=== PATIENT | female | born 1985 | race Caucasian/White ===

== ENCOUNTER 2017-09-12 10:37 | Outpatient (CLI) | payer OTHER ==
[2016-05-29 13:08] VITALS: BP 157/98
[2017-09-12 11:35] LABS: eGFR (African) > 60; eGFR (Non-African) > 60
== END 2017-09-12 10:40 ==
LOC: LAB 10:37
PROVIDERS: ATTEND Physician Assistant
DX: Z00.00 Encounter for general adult medical examination without abnormal findings (principal); R73.9 Hyperglycemia, unspecified; Z13.6 Encounter for screening for cardiovascular disorders; Z12.4 Encounter for screening for malignant neoplasm of cervix
CPT/HCPCS: 36415; 80053; 80061; 83036; 88148; G0143

== ENCOUNTER 2019-01-09 08:26 | Outpatient (CLI) | payer OTHER ==
[2016-05-29 13:08] VITALS: BP 157/98
--- NOTE | 2019-01-09 13:40 | Diagnostic Imaging Report ---
<p>Your browser does not support iframes.</p> MONA TALBOT [facility] [address] [facility].[address] [address] Report Submission Date: Jan 09, 2019 9:03:49 AM CDT Patient Study Name: HOLLAND TOMLIN Date: Jan 09, 2019 8:28:22 AM CDT Modality Type: DX Gender: F Description: BILAT WRISTS 3 VIEW : 85 Institution: [facility] Physician: MONA TALBOT Examination: Plain film wrists History: MEDIAL WRIST PAIN X1 YEAR Comparison exams: None available Findings: 3 views of the right and left wrists demonstrate normal cortical margins. No fracture. No dislocation. No soft tissue abnormality. Impression: No acute-appearing osseous abnormality Electronically signed on Jan 09, 2019 9:03:49 AM CDT by: Shiva PUCKETT
== END 2019-01-09 08:28 ==
LOC: RAD 08:26
PROVIDERS: ATTEND Nurse Practitioner Family
DX: M25.531 Pain in right wrist (principal); M25.532 Pain in left wrist

== ENCOUNTER 2019-04-08 13:54 | Outpatient (CLI) | payer OTHER ==
[2016-05-29 13:08] VITALS: BP 157/98
--- NOTE | 2019-04-30 11:01 | CONSULTATION REPORT ---
DATE OF CONSULTATION: 04/08/2019 CHIEF COMPLAINT: Bilateral carpal tunnel syndrome with pain and dysesthesias in hands and forearms. HISTORY OF PRESENT ILLNESS: This 34-year-old white female is seen for recommendations regarding treatment of bilateral carpal tunnel syndrome per request of Sandhya Mc NP, at the [facility] in [place]. The patient indicates that she has had troubles with pain in both hands and wrists for over a year. 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 She does report that she has tried using wrist splints, and that helped just a little bit such that she can do the job, but she still hurts. She says that the symptoms just keep getting worse. She does indicate that she has difficulty holding objects, feels like she is having to hold something that is 50 pounds in each hand "all the time." She says she drops objects. She does indicate that the pain awakens her at night. The patient does report that she is currently taking tramadol for it, 50 mg one to two tabs p.o. at a time. She used to take hydrocodone. She has taken non-steroidal medication in the past, but it has not helped. The patient does indicate no history of previous carpal tunnel disease or neuro problems peripherally. She does present having undergone EMG performed by Dr. Esparza at the [facility] in [place], [place] on 03/04/2019. That study reveals bilateral mild median entrapment neuropathy at the wrist consistent with carpal tunnel syndrome. There is no evidence of large fiber polyneuropathy in the upper limbs. MEDICATIONS: The patient does have additional medications listed to include gabapentin 100 mg one to two p.o. on regular basis, says that she takes these at least once a day, sometimes several times per day. REVIEW OF SYSTEMS: The patient's review of systems is positive for corrective lenses. PAST MEDICAL HISTORY: She reports history of kidney stones. PAST SURGICAL HISTORY: She reports surgical history of cholecystectomy 2001 and kidney stone removal 2016. SOCIAL HISTORY: The patient is a current 2-pack per day smoker, has smoked for about 20 years. She is single. She indicates she does not use alcohol and never has. FAMILY HISTORY: The patient's family history is positive for cancer in mother, asthma in father, paternal grandfather and one sibling. Diabetes in father and paternal grandfather. Hypertension in mother, father and paternal grandfather. Heart attack in father. Hypercholesterolemia in mother and father. Stroke in father. PHYSICAL EXAMINATION: On physical exam, vital signs are recorded revealing temperature 98.6, respirations 20, pulse 77, blood pressure 133/90. Height is 5 feet 1 inch with a weight of 183 pounds with a calculated BMI of 34.57. HEENT: Normocephalic. Neck: Supple. Lungs: Clear to percussion bilaterally. Cardiovascular: Regular, rate and rhythm. Abdomen: Soft, nontender, obese. Extremities: There is decreased sensation in the hands bilaterally. The patient has positive Tinel's, positive Phalen's, positive median nerve compression tests bilaterally as well. She does have reduced toll mechanic strength bilaterally, has to be coaxed to fully extend the fingers bilaterally after removing her wrist splints. She is able to move the thumb, but does not readily use the thumb to make a fist, but can do so upon request verbally. She has prominent toll mechanic strength weakness. There is good capillary refill distally. I did note the patient can pronate and supinate well, although slowly. She can dorsiflex and palmar flex the wrist slowly. I note she does report she feels better with the wrist splints in place. Findings are bilateral, left side somewhat more symptomatic, i.e., more pain and dysesthesias, weaker toll mechanic strength. She reports pain up to the elbows bilaterally, again worse on the left. She is able to abduct and forward flex both shoulders. Pulses are present and symmetric at the radial aspect of wrists bilaterally. IMPRESSION: 1. Bilateral carpal tunnel syndrome, symptomatically somewhat worse on dominant left upper extremity. 2. Mild obesity. 3. Cigarette smoker. RECOMMENDATIONS: Options are discussed with the patient. She voices desire to proceed with a left carpal tunnel release surgery. I discussed what that entails, anticipating a mini open procedure under monitored anesthesia control (MAC) with supplemental local anesthesia. I did advise the patient that decreased toll mechanic strength versus premorbid status is expected following carpal tunnel release, long-term. I also advised her that no guarantee as to results can be, is or will be provided. She is advised that expectation is for some reduction in the level of discomfort, but that no guarantee in that regard is provided. I did advise her that recurrence occurs in some individuals, and that the goal of the surgery is to stop the progression of carpal tunnel disease. I advised that some individuals improve, but again that the goal is to keep the carpal tunnel disease from getting worse. I advised her that it usually takes a minimum of two to four weeks to start feeling better after carpal tunnel release, although some individuals note improvement quicker. Other individuals sometimes require several months to notice improvement, assuming that they are part of the 90% of individuals who do note some improvement after the surgery. I did advise her that occupational or physical therapy is generally beneficial in helping individuals with rehabilitation following carpal tunnel release and that her active participation in that process is requisite. I also advised her that I would not anticipate providing her with narcotic medication postoperatively beyond for a few days, and she acknowledges and accepts this. I did recommend that she get the left side done initially and then the right later on, assuming she has gotten a satisfactory result in her opinion from the left carpal tunnel release. All of her questions are answered to her voiced satisfaction. We did discuss alternatives of treatment available, both surgical and non-surgical. She voices desire to proceed with the left carpal tunnel release, acknowledging that complications can and do arise in some individuals including, but not limited to, recurrence, infection, need for additional surgical intervention or interventions, failure to improve, worse symptoms, recurrence of symptoms, worse stiffness than she currently experiences, worse weakness than she currently experiences. I did advise her that her symptoms appear to be quite severe on her initial presentation, especially given what appears to be rather mild findings on the electrodiagnostic study. I did advise that smoking cessation/cessation of nicotine in all forms is likely to help her obtain improvement as well. We discussed the rationale behind that, especially in regards to healing concerns and oxygen availability for the tissues postoperatively. Scheduling is arranged for left carpal tunnel release under monitored anesthesia control using local supplementation. Ash Quinteros MD /Joe [id number] Job #[id number] cjd ITALO
== END 2019-04-08 15:20 ==
LOC: ORHTO 13:54
PROVIDERS: ATTEND Orthopaedic Surgery
DX: G56.03 Carpal tunnel syndrome, bilateral upper limbs (principal); F17.210 Nicotine dependence, cigarettes, uncomplicated; E66.9 Obesity, unspecified; Z68.34 Body mass index [BMI] 34.0-34.9, adult
CPT/HCPCS: 99203

== ENCOUNTER 2019-04-30 12:44 | Outpatient (CLI) | payer OTHER ==
[2016-05-29 13:08] VITALS: BP 157/98
[2019-04-30 13:29] LABS: eGFR (Non-African) > 60
[2019-04-30 14:32] LABS: SEGMENTED NEUTROPHILS % 52 % (39-79)
== END 2019-04-30 12:49 ==
LOC: LAB 12:44
PROVIDERS: ATTEND Nurse Practitioner Family
DX: Z01.818 Encounter for other preprocedural examination (principal)
CPT/HCPCS: 36415; 80053; 85025; 93005

== ENCOUNTER 2019-05-06 06:49 | Day surgery (SDC) | payer OTHER ==
[2016-05-29 13:08] VITALS: BP 157/98
[2019-05-06] MEDS ORDERED: HYDROcodone /APAP 5/325 1 EACH TABLET ONE (08:41)
[2019-05-06] MEDS ORDERED: LIDOCAINE HCL 2% PF 100MG/5ML VIAL IJ ONE (08:48)
[2019-05-06] MEDS ORDERED: KETOROLAC TROMETHAMINE 30 MG/1ML VIAL ONE (08:48)
[2019-05-06] MEDS ORDERED: SEVOFLURANE 250 ML LIQUID IH ONE (08:48)
[2019-05-06] MEDS ORDERED: PROPOFOL 200 MG/20 ML VIAL IV ONE (08:48)
[2019-05-06] MEDS ORDERED: BUPIVACAINE HCL 0.5% (5MG/ML) PF 10ML VIAL IV ONE (08:48)
[2019-05-06] MEDS ORDERED: fentaNYL CITRATE/PF 100 MCG/2 ML INJ. ONE (08:48)
[2019-05-06] MEDS ORDERED: DEXAMETHASONE SODIUM PHOSPHATE 10 MG/ML VIAL ONE (08:48)
[2019-05-06] MEDS ORDERED: MIDAZOLAM HCL 2 MG/2 ML VIAL ONE (08:48)
[2019-05-06] MEDS ORDERED: ceFAZolin SODIUM 1 GM VIAL ONE (08:48)
[2019-05-06] MEDS ORDERED: Lidocaine 1% 5ml 10 MG/ML VIAL ONE (08:48)
[2019-05-06] MEDS ORDERED: ONDANSETRON HCL/PF 4 MG/ 2ML VIAL ONE (08:48)
--- NOTE | 2019-05-11 10:35 | Operative Note ---
PROCEDURE DATE: 05/06/2019 PREOPERATIVE DIAGNOSIS: Left carpal tunnel syndrome. POSTOPERATIVE DIAGNOSIS: Left carpal tunnel syndrome. PROCEDURES PERFORMED: Left carpal tunnel release. SURGEON: Ash Quinteros M.D. ANESTHESIA: General with local augmentation (1% plain xylocaine with 0.5% plain Marcaine, approximately 5 mL). ESTIMATED BLOOD LOSS: 0 mL. COMPLICATIONS: None. TOURNIQUET TIME: 7 minutes. DESCRIPTION OF PROCEDURE: The patient was given general anesthesia successfully, having undergone informed consent preoperatively. She was positioned on the operating table with the hand extension. Sterile prep and drape was carried out. Site verification completed, extremity was exsanguinated and the pneumatic tourniquet was insufflated to a pressure of 250 mmHg. The incision was then made along the palmar aspect of the base of the hand, in line with the fourth ray. The incision was made just distal to the distal wrist crease, and the incision was approximately 2 cm in length. The incision was carried through the skin and subcutaneous tissue. The underlying transverse carpal ligament was identified. It was then transected using a 15 Bard Cesar knife, and I used a baby Metzenbaum scissors to extend the transection distally to the vascular arch and proximally to the forearm fascia. Good visualization of the median nerve was obtained with decompression visualized. The wound was irrigated, and closure was thereafter carried out, having injected the local supplementation Marcaine/xylocaine as listed above, prior to closure. Closure was obtained using running 4-0 Monocryl. Steri-Strips were applied, Mastisol along the edges of the skin, having released the tourniquet, and sterile soft dressing in place, good capillary refill was noted distally. The patient was thereafter awakened and transferred to the recovery area in satisfactory condition. She experienced no complications to surgery or anesthesia. Ash Quinteros M.D. GINA/dandre (Please copy Popbasic[employer] provider when applicable) Job #[id number] ITALO
== END 2019-05-06 09:10 | disposition home or self-care (01) ==
LOC: OPSURG 06:49
PROVIDERS: ATTEND Orthopaedic Surgery
DX: G56.02 Carpal tunnel syndrome, left upper limb (principal)
CPT/HCPCS: 64721; A9270; J0690; J1885; J2001; J2250; J2405; J2704; J3010; J3490

== ENCOUNTER 2019-05-19 08:53 | Outpatient (CLI) | payer OTHER ==
[2016-05-29 13:08] VITALS: BP 157/98
--- NOTE | 2019-05-22 15:13 | OP Clinic Progress Note ---
DATE OF VISIT: 05/19/2019 CHIEF COMPLAINT: Follow-up left carpal tunnel release. HISTORY OF PRESENT ILLNESS: Ms. Alvarez is a 34-year-old female patient, here for follow-up after left carpal tunnel release on 05/06/[address] Quinteros. The patient is still experiencing some pain, numbness and tingling, especially in her fifth digit. OBJECTIVE: General: This is a well-developed, well-nourished female patient presenting in [facility]. Vital Signs: Temperature is 98.7, pulse is 73, respiratory rate is 18, blood pressure 125/79 with an SaO2 of 100% on room air. The patient is rating her pain a 4/10 today. Psych: She is alert and oriented x3. She is calm, pleasant and cooperative. HEENT: Normocephalic and atraumatic. Sclerae clear. Musculoskeletal: After undressing the left hand and wrist, there is still some mild bruising to the left palmar aspect of her hand. Incision is well healing without any erythema or drainage. She does still have some tenderness to palpation around the surgical site as well as some tenderness to palpation with extension of her fingers. Fingers are warm and pink with a capillary refill of less than 2 seconds. Neurologic: Cranial nerves II through XII are grossly intact. Decreased sensation in the left pinkie finger. ASSESSMENT: Left carpal tunnel release on 05/06/2019. PLAN: 1. The patient to start occupational therapy for a home program without visits except PRN. 2. The patient may begin to shower and wash her extremity. She is still to watch for signs and symptoms of infection and if she has any concerns, of course she is to call and notify us so that we can get her into the office. 3. Otherwise, the patient can start resuming normal activities PRN. 4. The patient is to follow up as needed. PROCEDURE NOTE: The surgical incision was cleansed with normal saline. The remaining Steri- Strips were removed and the single suture was removed without difficulty. Two Steri-Strips were applied to the center of the surgical incision to ensure ongoing healing. The patient was advised that she could begin to shower and not to pick or peel the Steri-Strips as they should fall off in 7 to 10 days. The patient is to follow up pmartha Skelton NPNurse Practitioner /[employer] [id number] Job #[id number] cjd cc: BELTRAN Wray
== END 2019-05-19 09:50 ==
LOC: OUT 08:53
PROVIDERS: ATTEND Nurse Practitioner Adult Health
DX: Z47.89 Encounter for other orthopedic aftercare (principal)
CPT/HCPCS: 99212

== ENCOUNTER 2019-05-27 13:22 | Outpatient (CLI) | payer OTHER ==
[2016-05-29 13:08] VITALS: BP 157/98
--- NOTE | 2019-06-01 11:18 | OP Clinic Progress Note ---
PROGRESS NOTE: This 34-year-old female is seen for a chief complaint of right carpal tunnel syndrome. She is doing well three weeks post left carpal tunnel release performed 05/06/[address] [facility]. PHYSICAL EXAMINATION: The patient's vital signs reveal temperature of 97.0, pulse 102, blood pressure is 126/91 with a respiratory rate of 18. She has oxygen saturation of 97% on room air today. She has a well-healed incision. Sutures were removed previously. She has no erythema or induration. She indicates she has noted some improvement in her symptomatology left hand versus previously. There is good capillary refill and quite functional range of motion. She is left-hand dominant, and she does note weakness, not unexpectedly, especially at this point. I did discuss with her that expectations for some continuing improvement on a weekly basis for the next several weeks and, to a lesser degree, for another month or two after that most likely. She works at [employer]. She does want to go ahead and get the right carpal tunnel release performed, as she did have positive findings on the previous evaluation for that condition. I did note on the right that there is positive Tinel's, positive median nerve compression test. She does have dysesthesias in the median nerve distribution on the right, and there is mildly positive Phalen's test on the right. She says the right is hurting much worse than the left at this point. The patient has no change in her past medical history, past surgical history, medications, family history or social history since last being seen. IMPRESSION: 1. Right carpal tunnel syndrome. 2. Progressing well post left carpal tunnel release 05/06/2019, patient left- hand dominant. RECOMMENDATIONS: Options discussed with the patient, she voices desire to proceed with a right carpal tunnel release and arrangements are made for that. I did again advise her as to the pros and cons, expectations and limitations of surgery, as well as alternatives. She is advised that complications can and do occur in some individuals, although expectations are that she will do well following the surgery. 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 In addition, some individuals do develop incisional tenderness on a long-term or permanent basis. A small number of individuals require a revision or repeat carpal tunnel release down the road, in which case she would likely require more extensive intervention. All of her questions are answered to her voiced satisfaction. I would estimate her to have an approximate 90% prospect of satisfactory results following right carpal tunnel release. We talked about return to work. I expect that she will be able to return to work at [employer] in some capacity within six weeks following the surgery. She does not believe that they have anything which would allow her earlier return, but we did discuss that if something entirely sedentary, not requiring any demands to speak of involving that hand should come up, then I believe she would be suitable for that most likely. She acknowledges. Scheduling is arranged for right carpal tunnel release. Ash Quinteros MD/Joe [id number] Job #[id number] cjd-nr MTDD
== END 2019-05-27 13:52 ==
LOC: ORHTO 13:22
PROVIDERS: ATTEND Orthopaedic Surgery
DX: G56.01 Carpal tunnel syndrome, right upper limb (principal)
CPT/HCPCS: 99213

== ENCOUNTER → 2019-07-17 | Outpatient (CLI) | payer OTHER ==
[2016-05-29 13:08] VITALS: BP 157/98
[2019-07-17 10:47] LABS: BASOPHILS % 0.6 % (0.0-1.5); NEUTROPHILS # 3.8 # k/uL (1.4-7.7)
[2019-07-17 11:04] LABS: eGFR (Non-African) > 60
== END ==
LOC: LAB 10:07
PROVIDERS: ATTEND Orthopaedic Surgery
DX: G56.01 Carpal tunnel syndrome, right upper limb (principal)
CPT/HCPCS: 36415; 80053; 85025